=== PATIENT | male | born 1985 | race African-American/Black ===

== ENCOUNTER 2025-06-13 06:02 | Emergency (ER) | payer MEDICAID, SELFPAY ==
[2025-06-13 06:02] VITALS: BMI 25.0
[2025-06-13 06:13] VITALS: BP 142/95; PULSE 113; RESP 18; TEMP 36.6; O2SAT 98
--- NOTE | 2025-06-13 06:18 | XR_ITS ---
Examination: CT abdomen and pelvis without contrast. Coronal 3-D reconstructions. Sagittal 2-D reconstructions. Date and time of exam:June 13, 2025, 0806 hrs. Indications: Generalized abdominal pain with nausea vomiting today CTDI: vol (mGy): 6.19. DLP: (mGycm): 340. Technique: Axial images of the abdomen have been obtained, 3 mm slice thickness Intravenous contrast material has not been administered. Low dose protocols were performed. One or more of the following dose reduction techniques were used; automated exposure control, adjustment of the mA and/or KV according to patient size, use of iterative reconstruction technique. Findings: No focal liver or splenic lesions. Contracted gallbladder. No pancreatic or adrenal mass. No renal or ureteral calculi, no hydronephrosis. Liver normal size. No bowel obstruction. Normal appendix. No diverticulitis. No prostatomegaly. No bladder mass or bladder calculi. Mild osteopenia. Impression: Limited study without intravenous contrast Normal appendix No renal or ureteral calculi, no hydronephrosis No bowel obstruction or diverticulitis.
--- NOTE | 2025-06-13 06:19 | PD.EDRME ---
Rapid Medical Screening Exam RME Arrival date/time: 06/13/25 06:02 40-year-old male with history of pancreatitis presents to the emergency department for complaints of abdominal pain Chief Complaint: Abdominal Pain Time Seen by Provider: 06/13/25 06:18 Vital signs: Vital Signs Temperature 97.9 F 06/13/25 06:13 Pulse Rate 113 H 06/13/25 06:13 Respiratory Rate 18 06/13/25 06:13 Blood Pressure 142/95 H 06/13/25 06:13 Pulse Oximetry (%) 98 06/13/25 06:13 Oxygen Delivery Method Room Air 06/13/25 06:13
[2025-06-13] MEDS: ONDANSETRON ODT 4 MG TABRAP PO (06:27)
[2025-06-13] MEDS: KETOROLAC INJ 30 MG/ML VIAL IM (06:28)
[2025-06-13 06:34] LABS: Collection Type, Urine Clean Catch
[2025-06-13 07:18] LABS: Bilirubin,Urine Negative (Negative); Blood,Urine Negative (Negative); Clarity,Urine Clear (Clear/Hazy); Color,Urine Lt-Yellow (Lt Yel-Yel); Culture Indicated,Urine Not Indicated; Glucose, Urine Negative (Negative); Ketones,Urine Negative (Negative); Leukocyte Esterase,Urine Negative (Negative); Nitrite,Urine Negative (Negative); PH,Urine 7.0 (5.0-7.0); Protein,Urine Negative (Neg - Trace); RBC,Urine 6 /hpf (0-3); Specific Gravity,Urine 1.020 (1.001-1.035); Squamous Epithelial Cell,Urine < 1 /hpf (0-5); Urobilinogen,Urine Negative mg/dL (0.0-1.0); WBC,Urine 3 /hpf (0-5)
[2025-06-13 07:35] LABS: Amphetamine/Methamp Scrn,U Positive (Negative); Barbiturate Screen,Urine Negative (Negative); Benzodiazepines Screen,Urine Negative (Negative); Benzoylecgonine Screen, Ur Negative (Negative); Fentanyl Screen,Urine Negative (Negative); Opiate Screen,Urine Negative (Negative); THC Screen,Urine Positive (Negative)
--- NOTE | 2025-06-13 07:45 | EDNOTE_ITS ---
ED Abdominal Pain RME/HPI General Chief Complaint: Abdominal Pain Stated complaint: ABD PAIN/ VOMITING Time seen by provider: 06/13/25 06:18 Arrival date/time: 06/13/25 06:02 RME / HPI RME / HPI narrative: 06/13/25 06:02 40-year-old male with history of pancreatitis presents to the emergency department for complaints of abdominal pain. Mr. Coughlin is a 40-year-old male with past medical history of pancreatitis used to follow with Dr. Sinha in [place] who presents to [facility] emergency department on 06/13/2025 with a chief complaint of abdominal pain. Patient complains of the feeling of his intestines bloating up, endorses some right upper quadrant pain, reports this pain to be 8/10, patient noted to be hypertensive and reports that his symptoms feel like pancreatitis flare. Patient denies any nausea, vomiting, diarrhea, constipation, shortness of breath, chest pain and headache. Patient denies any other medical problems or other past medical history. Related Data Previous Rx's ?Medication ?Instructions ?Recorded ondansetron 4 mg disintegrating 4 mg PO Q6H PRN nausea and 03/12/19 tablet vomiting #10 tabs acetaminophen 500 mg tablet 500 mg PO Q6H PRN pain 7 d ays #28 06/13/25 (Tylenol Extra Strength) tabs aluminum-mag hydroxide-simethicone 5 ml PO Q3H PRN dys pepsia #3,000 mL 06/13/25 200 mg-200 mg-20 mg/5 mL oral susp (Maalox Advanced) ibuprofen 200 mg tablet 200 mg PO Q6H PRN pain 7 day s #28 06/13/25 tabs pantoprazole 40 mg tablet,delayed 40 mg PO QDAY 7 days #7 tabs 06/13/25 release Allergies Allergy/AdvReac Type Severity Reaction Status Date / Time No Known Allergies Allergy Verified 03/12/19 15:37 Review of Systems Review of Systems Systems Reviewed: All systems reviewed, normal except as documented Past Medical History Past Medical History Comments PMH COMMENT: PMH: Positive for Pancreatitis PSHx: Denies Allergies:NKDA Social history: -Smoking:Smoke [place] -Alcohol Use:Denies -Illicit Drug Use:Denies Family History:Positive FH for DM, No Cardiac Illness ED Exam Narrative Physical exam: Physical Exam General: Awake and in no acute distress. Conversational and non-toxic appearing. HEENT: Normocephalic, atraumatic, mucous membranes moist. Heart: Regular rate and rhythm, no murmurs. Lungs: Clear to auscultation with no wheezing or crackles. Abdomen: Soft, Voluntary Guarding, + tenderness RUQ and LUQ Neurologic: Alert and oriented x3, no gross neurological deficit, and patient able to move all 4 extremities. Extremities: No edema. Skin: No rash or ecchymoses. 2-3 cm rubbery nontender mass mid upper back. Course Course Course Narrative: Patient presented from triage to main ED, complaining of abdominal pain CT abdomen pelvis obtained negative for pancreatitis, Normal appendix no renal or ureteral calculi contracted gallbladder no diverticulosis. Urinalysis negative for urine protein, glucose, ketones, blood, nitrite, bilirubin urine RBC 6, negative for bacteria leukocyte esterase. Will be given 1 L LR bolus, famotidine 20 mg IV x 1, Maalox p.o. x 1 and morphine 1 mg x 1. Patient was given p.o. Zofran and IM Toradol in triage. CBC shows hemoglobin 12.7, RBC 4.25, hematocrit 37.3, chloride 110, total bilirubin 0.2, total protein 5.6, globulin 1.7 amylase 210 Patient started on Ibuprofen and acetaminophen combination for pain management. Patient will be discharged home, after discussion with patient. 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 START 00 Care 06/13/25 07:45 Completed Continuous Pulse Oximetry NOW Care 06/13/25 07:45 Completed EKG (ED ONLY) *Do not use* NOW Care 06/13/25 08:38 Completed Insert IV NOW Care 06/13/25 07:[address] abdomen pelvis wo con Stat Exams 06/13/25 06:18 Completed EKG (ED Only) Stat Exams 06/13/25 08:38 Draft Amylase Stat Lab 06/13/25 09:05 Completed CBC Stat Lab 06/13/25 09:05 Completed Comprehensive Metabolic Panel Stat Lab 06/13/25 09:05 Completed Drug Screen,Urine Stat Lab 06/13/25 06:30 Completed Lactate (Lactic Acid) Stat Lab 06/13/25 09:05 Completed Lipase Stat Lab 06/13/25 09:05 Completed UA, C/S IF [Urinalysis, C/S if Indicated] Stat Lab 06/13/25 06:30 Completed Acetaminophen Tab [Tylenol ES Tab] Med 06/13/25 09:42 Discontinued 500 mg PO X1 ONE Famotidine Inj [Pepcid Inj] Med 06/13/25 08:21 Discontinued 20 mg IVP X1 ONE Ibuprofen Tab [Motrin Tab] Med 06/13/25 09:42 Discontinued 400 mg PO X1 ONE Ketorolac Inj [Toradol Inj] Med 06/13/25 06:18 Discontinued 30 mg IM X1 ONE Morphine* Inj Med 06/13/25 08:10 Discontinued 1 mg IVP X1 ONE Ondansetron Odt [Zofran Odt] Med 06/13/25 06:18 Discontinued 4 mg PO X1 ONE Ringers Lactated 1000 ml [Lactated Ringers] 1,000 ml Med 06/13/25 08:03 Discontinued IV 999 mls/hr mg Hyd/Al Hyd/Greyson Susp [Maalox Susp] Med 06/13/25 08:37 Discontinued 30 ml PO X1 ONE Vital Signs Vital signs: Vital Signs Temperature 97.9 F 06/13/25 06:13 Pulse Rate 113 H 06/13/25 06:13 Respiratory Rate 18 06/13/25 06:13 Blood Pressure 142/95 H 06/13/25 06:13 Pulse Oximetry (%) 98 06/13/25 06:13 Oxygen Delivery Method Room Air 06/13/25 06:13 Abdominal Pain MDM MDM Narrative MDM Narrative:: #Dyspepsia, indigestion #Methamphetamine use #THC dependence Patient presented with abdominal discomfort and pain most pain localized in the right upper quadrant. EKG shows sinus rhythm, denied any active chest pain no suspicion of cardiac chest pain. Urine drug screen positive for methamphetamine positive, marijuana positive Mildly slightly elevated however low clinical suspicion of acute pancreatitis. Mild anemia noted. Patient was given Zofran, Toradol, 1 L LR bolus, morphine 1 mg famotidine 20 mg, Maalox acetaminophen and ibuprofen. Patient's abdominal pain likely secondary to dyspepsia/indigestion, will be discharged on Tylenol and ibuprofen combination pill, Maalox and pantoprazole daily for 7 days Discharge instructions as below Case discussed with Attending Physician Dr. Trina Sultana MD Internal Medicine PGY-2 Disclaimer: This note was dictated by speech recognition. Minor errors in paper folding machine operator may be present due to voice recognition software. Patient data External records reviewed:: [facility] previous records Clinical information provided by:: patient Social determinants that could affect healthcare access:: substance use Patient has the following chronic illnesses:: Pancreatitis How is presenting disease/condition affected by chronic disease/condition?: uneffected by Evaluation data The following diagnostics were reviewed and interpreted by me:: lab results, radiology exam(s) and EKG tracing(s) Lab and/or radiology exams considered but not ordered:: None Interpretation Summary: CT abdomen pelvis obtained negative for pancreatitis, Normal appendix no renal or ureteral calculi contracted gallbladder no diverticulosis. Urinalysis negative for urine protein, glucose, ketones, blood, nitrite, bilirubin urine RBC 6, negative for bacteria leukocyte esterase. CBC shows hemoglobin 12.7, RBC 4.25, hematocrit 37.3, chloride 110, total bilirubin 0.2, total protein 5.6, globulin 1.7 amylase 210 Medications / Prescriptions Medications or Prescriptions considered but not ordered:: None Medication administrations:: Medication Administration History Discontinued Medications Acetaminophen (Acetaminophen 500 Mg Tablet) 500 mg PO X1 ONE Stop: 06/13/25 09:43 Last Admin: 06/13/25 09:53 Dose: 500 mg Documented By: ADELINE Al Hydrox/Mg Hydrox/Simethicone (Mg Hyd/Al Hyd/Greyson (Maalox Reg) Susp 30 Ml Udc) 30 ml PO X1 ONE Stop: 06/13/25 08:38 Last Admin: 06/13/25 08:52 Dose: 30 ml Documented By: ADELINE Famotidine (Famotidine Inj 10 Mg/Ml Vial 2 Ml) 20 mg IVP X1 ONE Stop: 06/13/25 08:22 Last Admin: 06/13/25 08:48 Dose: 20 mg Documented By: ADELINE Lactated Ringer's (Lactated Ringers) 1,000 mls @ 999 mls/hr IV .Q1H1M ONE Stop: 06/13/25 09:03 Last Infusion: 06/13/25 09:59 Dose: Infused Documented By: Admin: 06/13/25 08:41 Dose: 999 mls/hr Documented By: ADELINE Ibuprofen (Ibuprofen Tab 400 Mg Tablet) 400 mg PO X1 ONE Stop: 06/13/25 09:43 Last Admin: 06/13/25 09:53 Dose: 400 mg Documented By: ADELINE Ketorolac Tromethamine (Ketorolac Inj 30 Mg/Ml Vial) 30 mg IM X1 ONE Stop: 06/13/25 06:19 Last Admin: 06/13/25 06:28 Dose: 30 mg Documented By: DAVIS Morphine Sulfate (Morphine Sulf Inj 4 Mg/Ml Vial) 1 mg IVP X1 ONE Stop: 06/13/25 08:11 Last Admin: 06/13/25 08:42 Dose: 1 mg Documented By: ADELINE Ondansetron HCl (Ondansetron Odt 4 Mg Tabrap) 4 mg PO X1 ONE; Protocol Stop: 06/13/25 06:19 Last Admin: 06/13/25 06:27 Dose: 4 mg Documented By: DAVIS As Above Consultations Consultation(s) initiated? (list below): No Diagnosis Differential diagnosis abdominal pain: abdominal pain, gastroenteritis and other (Gastritis) Most likely diagnosis given after review of the tests above:: Dyspepsia, Methamphetamine Use Admission Indicated Admission indicated?: not indicated Admission Request Was there a request for admission?: No Disposition Plan Disposition Plan: Discharge Discharge Attestation Discharge Attestation: The patient and all family members were given an opportunity to ask questions and understood the discharge instructions. Discharge instructions specifically effects, indications for sooner follow up or return to the emergency department, and the expected course of current diagnosis. Patient condition: Stable Discharge Plan Plan Patient Disposition: HOME (Self Care) Patient condition on transfer: Stable Health Concerns: - Take pantoprazole 40 mg daily for 7 days - Take Maalox suspension as needed every 3 hours for dyspepsia/indigestion - Take combination of Tylenol 500 mg along with ibuprofen 200 mg both pills at the same time for management of your pain. - We obtained a CT scan of your abdomen/pelvis there is no active concern of pancreatitis, cholecystitis. Your pain is likely secondary to dyspepsia/indigestion. - Avoid Smoking THC, alcohol, Coffee and spicy foods. Eat more fibre. - Follow-up with your primary care physician discuss all your results in 1 week - If your pain worsens please return to the emergency department Prescriptions/Referrals Prescriptions/Med Rec: New acetaminophen [Tylenol Extra Strength] 500 mg tablet 500 mg PO Q6H PRN (Reason: pain) 7 Days Qty: 28 0RF ibuprofen 200 mg tablet 200 mg PO Q6H PRN (Reason: pain) 7 Days Qty: 28 0RF alum-mag hydroxide-simeth [Maalox Advanced] 200-200-20 mg/5 mL suspension 5 ml PO Q3H PRN (Reason: dyspepsia) Qty: 3000 0RF pantoprazole 40 mg tablet,delayed release (DR/EC) 40 mg PO QDAY 7 Days Qty: 7 0RF Continued ondansetron 4 mg tablet,disintegrating 4 mg PO Q6H PRN (Reason: nausea and vomiting) Qty: 10 0RF Referrals: Xavier Hurley MD [Primary Care Provider, Family Practice] - In 1 week Problem List Clinical Impression: Dyspepsia Patient/Caregiver Discharge Instructions Education Materials: Medicines for Acid Reflux, Discharge Instructions- Eating ... Print Language: Syriac Stand Alone Forms: Lisa Award Info., Patient Portal Info Letter
[2025-06-13 07:52] VITALS: BP 137/98; PULSE 75; RESP 18; TEMP 36.7; O2SAT 100
[2025-06-13 08:33] VITALS: PULSE 88
--- NOTE | 2025-06-13 08:38 | EKG_ITS ---
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
[2025-06-13] MEDS: RINGERS LACTATED 1000 ML 1,000 ML 999 ML IV (08:41)
[2025-06-13] MEDS: MORPHINE SULF INJ 4 MG/ML VIAL 1 MG IVP (08:42)
[2025-06-13] MEDS: FAMOTIDINE INJ 10 MG/ML VIAL 2 ML 20 MG IVP (08:48)
[2025-06-13] MEDS: MG HYD/AL HYD/SIME (Maalox Reg) SUSP 30 ML UDC PO (08:52)
[2025-06-13 09:21] LABS: Lactate (Lactic Acid) 1.2 mMol/L (0.4-2.0)
[2025-06-13 09:25] LABS: Basophils # (Auto) 0.0 Thou/mm3 (0.0-0.2); Basophils % (Auto) 0 % (0-2.5); Eosinophils # (Auto) 0.1 Thou/mm3 (0.0-0.5); Eosinophils % (Auto) 1 % (0-10); Hematocrit 37.3 % (41.0-53.0); Hemoglobin 12.7 g/dL (13.5-16.0); Immature Granulocytes Auto 0.02 Thou/mm3 (0.00-0.00); Lymphocytes # (Auto) 1.9 Thou/mm3 (1.0-4.8); Lymphocytes % (Auto) 25 % (10-50); Mean Corpuscular HGB Conc 34.0 g/dl (31.0-37.0); Mean Corpuscular Hemoglobin 29.9 pg (25.0-35.0); Mean Corpuscular Volume 88 fL (80-100); Monocytes # (Auto) 0.5 Thou/mm3 (0.0-0.8); Monocytes % (Auto) 7 % (0-12); Neutrophils # (Auto) 5.0 Thou/mm3 (1.8-7.7); Neutrophils % (Auto) 66 % (37-80); Nucleated Red Blood Cell # 0.00 Thou/mm3 (0.00-0.00); Nucleated Red Blood Cell % 0 /100 WBC (0); Platelet Count 199 Thou/mm3 (140-440); RDW Standard Deviation 40.6 fL (35.1-43.9); Red Blood Count 4.25 Miln/mm3 (4.50-5.90); White Blood Count 7.5 Thou/mm3 (3.8-10.6)
[2025-06-13 09:47] LABS: Alanine Aminotransferase 26 U/L (10-49); Albumin, Serum 3.9 gm/dL (3.5-5.0); Albumin/Globulin Ratio 2.3 (1.2-2.2); Alkaline Phosphatase 50 U/L (46-116); Amylase 210 U/L (30-118); Anion Gap 7 (7-16); Aspartate Amino Transferase 22 U/L (0-34); BUN/Creatinine Ratio 9 Ratio (12-20); Bilirubin,Total 0.2 mg/dL (0.3-1.2); Blood Urea Nitrogen 9 mg/dL (9-23); Calcium 8.8 mg/dL (8.3-10.6); Calcium (Corrected) 8.9 mg/dL (8.5-10.1); Carbon Dioxide 26.0 mMol/L (20.0-31.0); Chloride 110 mMol/L (98-107); Creatinine (Component) 1.0 mg/dL (0.6-1.3); Estimated Creatinine Clearance 108.8 mL/min (>60); Globulin 1.7 gm/dL (2.3-3.5); Glucose 83 mg/dL (74-106); Osmolality,Calculated 282 (275-295); Potassium 4.0 mMol/L (3.4-5.1); Sodium 143 mMol/L (136-145); Total Protein 5.6 gm/dL (5.7-8.2); eGFR > 60 See Note
[2025-06-13] MEDS: IBUPROFEN TAB 400 MG TABLET PO (09:53)
[2025-06-13] MEDS: ACETAMINOPHEN 500 MG TABLET PO (09:53)
[2025-06-13 10:00] VITALS: BP 150/103; PULSE 88; RESP 16; TEMP 36.5; O2SAT 97
== END 2025-06-13 11:09 | disposition home or self-care (01) ==
PROVIDERS: Nurse Practitioner Primary Care; PCP Family Medicine
DX: R10.13 Epigastric pain (principal)
CPT/HCPCS: 36415; 74176; 80053; 80307; 81001; 82150; 83605; 83690; 85025; 93005; 96361; 96372; 96374; 96375; 99283; J1885; J2270; J3490; J7120; Q0162; A9270